=== PATIENT | female | born 1985 | race Caucasian/White ===

== ENCOUNTER 2016-05-05 10:48 | Emergency (ER) | payer OTHER ==
[~2016-05-05] VITALS: Ht 170.2 cm; Wt 71.4 kg
[~2016-05-05 10:48] MED LIST: ABILIFY 10MG TA10 MG PO; ABILIFY 15MG TA15 MG PO; ABILIFY2 MG; ABILIFY5 MG PO; AMOXICILLIN 50500 MG PO; ATARAX50 MG PO; ATIVAN 1MG T1 MG/TAB PO; ATIVAN2 MG PO; BENADRYL50 MG; BUSPAR5 MG PO; CYMBALTA 20MG20 MG; CYMBALTA 30MG30 MG PO; CYMBALTA 60MG60 MG PO; DESYREL 50MG50 MG PO; DILAUDID 4MG TAB4 MG PO; EFFEXOR 75M75 MG/TAB PO; EFFEXOR XR75 MG/CAP PO; FLEXERIL 1010 MG/TAB PO; KEPPRA 500MG500 MG PO; KEPPRA750 MG PO; LEVOXYL0.025 MG; LEVOXYL0.125 MG PO; MIDRIN 325 MG-11 CAP PO; NORCO 325 MG-51 TAB PO; PERCOCET 325 MG1 TA2 PO; PERIDEX (CHLOR480 ML MM; SYNTHROID0.1 MG/TAB PO; SYNTHROID0.125 MG/T PO; TOPAMAX 25MG25 M1; ZOFRAN 4MG T4 MG/TAB PO; ZOFRAN ODT4 MG PO
[2016-05-05 10:58] VITALS: TEMP 98.1
[2016-05-05] MEDS ORDERED: COMPAZINE 110 MG/TAB PO (12:44)
[2016-05-05 12:58] VITALS: BP 112/73; PULSE 57
[2016-05-05] MEDS ORDERED: REGLAN 10MG10 MG/TAB PO (17:10)
[2016-05-05] MEDS ORDERED: ULTRAM 50MG TAB50 MG PO (17:10)
== END 2016-05-05 13:01 | disposition home or self-care (01) ==
LOC: COL.ER 10:48
DX: G43.909 Migraine, unspecified, not intractable, without status migrainosus (principal)
CPT/HCPCS: J1200; J1885; J2550; J3010; J7030

== ENCOUNTER 2016-05-05 14:59 | Emergency (ER) | payer OTHER ==
[~2016-05-05] VITALS: Ht 170.2 cm; Wt 71.4 kg
[~2016-05-05 14:59] MED LIST changes: +COMPAZINE 110 MG/TAB PO
[2016-05-05 15:02] VITALS: TEMP 97.9
[2016-05-05] MEDS ORDERED: REGLAN 10MG10 MG/TAB PO (17:10)
[2016-05-05] MEDS ORDERED: ULTRAM 50MG TAB50 MG PO (17:10)
[2016-05-05 18:50] VITALS: BP 114/74; PULSE 55
== END 2016-05-05 18:50 | disposition home or self-care (01) ==
LOC: COL.ER 14:59
DX: R51 Headache (principal); F17.210 Nicotine dependence, cigarettes, uncomplicated; Z86.73 Personal history of transient ischemic attack (TIA), and cerebral infarction without residual deficits
CPT/HCPCS: J1100; J1200; J1885; J2405; J2550; J2765; J7030

== ENCOUNTER 2016-05-06 15:21 | Emergency (ER) | payer OTHER ==
[~2016-05-06] VITALS: Ht 170.2 cm; Wt 71.4 kg
[~2016-05-06 15:21] MED LIST changes: +REGLAN 10MG10 MG/TAB PO; +ULTRAM 50MG TAB50 MG PO
[2016-05-06 15:35] VITALS: BP 118/87; TEMP 98.6
[2016-05-06 16:33] LABS: BASO % 0.1 % (0.0-2.0); GRAN # 11.5 (1.4-6.5); GRAN % 76.9 % (42.2-75.2); LYMPH # 2.6 (1.2-3.4); LYMPH % 17.5 % (20.0-51.0); MEAN CELL VOLUME 86 fl (80.0-100.0); MEAN CORPUSCULAR HGB CONC 35 g/dl (33.0-37.0); MEAN PLATELET VOLUME 11.1 fl (7.4-10.4); MONO # 0.8 (0.1-0.6); MONO % 5.1 % (1.7-9.3); PLATELET COUNT 208 K/mm3 (130-400); RED BLOOD COUNT 3.94 M/mm3 (4.10-5.30); REDCELL DISTRIBUTION WIDTH-CV 14.2 % (11.5-14.5)
[2016-05-06 16:40] LABS: HEMATOCRIT 33.9 % (37.0-47.0); HEMOGLOBIN 11.8 g/dl (12.5-16.0); MEAN CORPUSCULAR HEMOGLOBIN 30 pg (27.0-31.0)
[2016-05-06 16:44] LABS: ADJUSTED CALCIUM 9.5 mg/dL (8.4-10.2); ALANINE AMINOTRANSFERASE 51 U/L (9-52); ALBUMIN 4.5 gm/dL (3.5-5.0); ALKALINE PHOSPHATASE 33 U/L (50-136); ANION GAP 13 mmol/L (7-16); BILIRUBIN,TOTAL 0.6 mg/dL (0.0-1.0); BLOOD UREA NITROGEN 14 mg/dL (7-17); CALCIUM 9.9 mg/dL (8.4-10.2); CARBON DIOXIDE 23 mmol/L (22-30); CHLORIDE 106 mmol/L (98-107); CREATININE, serum 0.67 mg/dL (0.52-1.25); GLUCOSE 112 mg/dL (74-106); POTASSIUM 3.7 mmol/L (3.4-5.0); SODIUM 141 mmol/L (137-145); TOTAL PROTEIN 8.2 gm/dL (6.4-8.2)
[2016-05-06 16:45] LABS: C-REACTIVE PROTEIN < 0.5 mg/dL (0.0-0.9)
[2016-05-06 17:07] LABS: ERYTHROCYTE SEDIMENTATION RATE 18 mm/hr (0-20)
[2016-05-06 17:45] VITALS: PULSE 80
== END 2016-05-06 17:43 | disposition home or self-care (01) ==
LOC: COL.ER 15:21
PROVIDERS: Physician Assistant
DX: G43.909 Migraine, unspecified, not intractable, without status migrainosus (principal); D72.829 Elevated white blood cell count, unspecified; I10 Essential (primary) hypertension; F17.210 Nicotine dependence, cigarettes, uncomplicated
CPT/HCPCS: J1200; J2060; J2765

== ENCOUNTER 2016-05-27 09:55 | Emergency (ER) | payer OTHER ==
[~2016-05-27] VITALS: Ht 170.2 cm; Wt 78.6 kg
[2016-05-27 09:56] VITALS: TEMP 100.2
[2016-05-27] MEDS ORDERED: REMERON 15M15 MG/TA1 PO (10:20)
[2016-05-27] MEDS ORDERED: INDERAL 20MG20 MG PO (10:21)
[2016-05-27 10:35] LABS: BASO % 0.6 % (0.0-2.0); EOS # 0.1 (0.0-0.7); EOS % 1.8 % (0-4.0); GRAN # 2.4 (1.4-6.5); GRAN % 48.3 % (42.2-75.2); LYMPH # 2.2 (1.2-3.4); LYMPH % 42.9 % (20.0-51.0); MEAN CELL VOLUME 88 fl (80.0-100.0); MEAN CORPUSCULAR HGB CONC 34 g/dl (33.0-37.0); MEAN PLATELET VOLUME 11.1 fl (7.4-10.4); MONO # 0.3 (0.1-0.6); MONO % 6.2 % (1.7-9.3); PLATELET COUNT 218 K/mm3 (130-400); RED BLOOD COUNT 3.74 M/mm3 (4.10-5.30); REDCELL DISTRIBUTION WIDTH-CV 14.3 % (11.5-14.5)
[2016-05-27 10:44] LABS: ADJUSTED CALCIUM 9.2 mg/dL (8.4-10.2); ALANINE AMINOTRANSFERASE 37 U/L (9-52); ALBUMIN 4.3 gm/dL (3.5-5.0); ALKALINE PHOSPHATASE 27 U/L (50-136); ANION GAP 10 mmol/L (7-16); BLOOD UREA NITROGEN 18 mg/dL (7-17); CALCIUM 9.4 mg/dL (8.4-10.2); CARBON DIOXIDE 25 mmol/L (22-30); CHLORIDE 106 mmol/L (98-107); CREATININE, serum 0.74 mg/dL (0.52-1.25); GLUCOSE 88 mg/dL (74-106); HEMATOCRIT 32.8 % (37.0-47.0); HEMOGLOBIN 11.1 g/dl (12.5-16.0); MEAN CORPUSCULAR HEMOGLOBIN 30 pg (27.0-31.0); POTASSIUM 4.1 mmol/L (3.4-5.0); SODIUM 141 mmol/L (137-145); TOTAL PROTEIN 7.9 gm/dL (6.4-8.2)
[2016-05-27 10:54] LABS: C-REACTIVE PROTEIN < 0.5 mg/dL (0.0-0.9)
[2016-05-27 11:11] LABS: ERYTHROCYTE SEDIMENTATION RATE 22 mm/hr (0-20)
[2016-05-27] MEDS ORDERED: NORCO 325 MG-51 TAB PO (12:46)
[2016-05-27 12:54] VITALS: BP 124/80; PULSE 51
== END 2016-05-27 12:52 | disposition home or self-care (01) ==
LOC: COL.ER 09:55
PROVIDERS: Emergency Medicine
DX: R51 Headache (principal); F17.210 Nicotine dependence, cigarettes, uncomplicated
CPT/HCPCS: J1170; J1885; J2405; J7030

== ENCOUNTER 2016-06-25 04:13 | Emergency (ER) | payer OTHER ==
[~2016-06-25] VITALS: Ht 170.2 cm; Wt 71.4 kg
[~2016-06-25 04:13] MED LIST changes: +INDERAL 20MG20 MG PO; +REMERON 15M15 MG/TA1 PO
[2016-06-25 04:15] VITALS: TEMP 99.2
[2016-06-25 05:18] VITALS: BP 112/71; PULSE 79
== END 2016-06-25 05:18 | disposition home or self-care (01) ==
LOC: COL.ER 04:13
DX: G43.909 Migraine, unspecified, not intractable, without status migrainosus (principal)
CPT/HCPCS: J1170; J1885; J2550

== ENCOUNTER 2016-07-12 11:22 | Emergency (ER) | payer OTHER ==
[~2016-07-12] VITALS: Ht 170.2 cm; Wt 71.4 kg
[2016-07-12 11:28] VITALS: TEMP 97.9
[2016-07-12 12:12] LABS: PH 6 (5-8); URINE APPEARANCE Clear; URINE BACTERIA None Seen /hpf; URINE BILIRUBIN Negative (NEGATIVE); URINE BLOOD Negative (NEGATIVE); URINE COLOR Yellow; URINE GLUCOSE Negative (NEGATIVE); URINE KETONE Trace (NEGATIVE)
[2016-07-12 14:37] VITALS: BP 132/74; PULSE 65
== END 2016-07-12 14:38 | disposition home or self-care (01) ==
LOC: COL.ER 11:22
PROVIDERS: Nurse Practitioner
DX: R51 Headache (principal); F17.210 Nicotine dependence, cigarettes, uncomplicated; I10 Essential (primary) hypertension
CPT/HCPCS: J1100; J1110; J1200; J1885; J2405; J2550; J2765; J7030

== ENCOUNTER 2016-07-14 14:54 | Emergency (ER) | payer OTHER ==
[~2016-07-14] VITALS: Ht 170.2 cm; Wt 71.4 kg
[2016-07-14 15:03] VITALS: BP 121/96; TEMP 98.3
[2016-07-14] MEDS ORDERED: INDERAL40 MG PO (15:05)
[2016-07-14 17:59] VITALS: PULSE 60
== END 2016-07-14 18:00 | disposition home or self-care (01) ==
LOC: COL.ER 14:54
DX: R51 Headache (principal); I10 Essential (primary) hypertension
CPT/HCPCS: J1170; J1200; J2550

== ENCOUNTER 2016-07-21 15:33 | Emergency (ER) | payer OTHER ==
[~2016-07-21] VITALS: Ht 170.2 cm; Wt 71.4 kg
[~2016-07-21 15:33] MED LIST changes: +INDERAL40 MG PO
[2016-07-21 15:36] VITALS: TEMP 98
[2016-07-21] MEDS ORDERED: INDERAL 10MG10 MG PO (15:39)
[2016-07-21 16:42] VITALS: BP 97/56; PULSE 56
[2016-07-21] MEDS ORDERED: FIORICET 325 MG1 TA1 PO (16:47)
[2016-07-21] MEDS ORDERED: PERCOCET 325 MG1 TA2 PO (16:47)
== END 2016-07-21 16:58 | disposition home or self-care (01) ==
LOC: COL.ER 15:33
DX: G43.909 Migraine, unspecified, not intractable, without status migrainosus (principal); F17.210 Nicotine dependence, cigarettes, uncomplicated
CPT/HCPCS: J1170

== ENCOUNTER 2016-07-27 03:48 | Emergency (ER) | payer OTHER ==
[~2016-07-27] VITALS: Ht 170.2 cm; Wt 71.4 kg
[~2016-07-27 03:48] MED LIST changes: +FIORICET 325 MG1 TA1 PO; +INDERAL 10MG10 MG PO
[2016-07-27 05:04] LABS: BASO % 0.4 % (0.0-2.0); EOS # 0.1 (0.0-0.7); EOS % 1.2 % (0-4.0); GRAN # 5.3 (1.4-6.5); GRAN % 58.1 % (42.2-75.2); HEMATOCRIT 32.6 % (37.0-47.0); HEMOGLOBIN 10.8 g/dl (12.5-16.0); LYMPH # 3.1 (1.2-3.4); LYMPH % 34.2 % (20.0-51.0); MEAN CELL VOLUME 86 fl (80.0-100.0); MEAN CORPUSCULAR HEMOGLOBIN 28 pg (27.0-31.0); MEAN CORPUSCULAR HGB CONC 33 g/dl (33.0-37.0); MEAN PLATELET VOLUME 11.5 fl (7.4-10.4); MONO # 0.5 (0.1-0.6); MONO % 5.9 % (1.7-9.3); PLATELET COUNT 193 K/mm3 (130-400); RED BLOOD COUNT 3.79 M/mm3 (4.10-5.30); REDCELL DISTRIBUTION WIDTH-CV 13.9 % (11.5-14.5); WHITE BLOOD COUNT 9.2 K/mm3 (4.8-10.8)
[2016-07-27] MEDS ORDERED: ZITHROMAX Z PA250 MG PO (05:09)
[2016-07-27 05:19] LABS: ADJUSTED CALCIUM 9.3 mg/dL (8.4-10.2); ALANINE AMINOTRANSFERASE 28 U/L (9-52); ALKALINE PHOSPHATASE 34 U/L (50-136); ANION GAP 11 mmol/L (7-16); BILIRUBIN,TOTAL 0.5 mg/dL (0.0-1.0); BLOOD UREA NITROGEN 17 mg/dL (7-17); CALCIUM 9.3 mg/dL (8.4-10.2); CARBON DIOXIDE 25 mmol/L (22-30); CHLORIDE 105 mmol/L (98-107); CREATININE, serum 0.68 mg/dL (0.52-1.25); GLUCOSE 87 mg/dL (74-106); POTASSIUM 3.6 mmol/L (3.4-5.0); SODIUM 141 mmol/L (137-145); TOTAL PROTEIN 7.5 gm/dL (6.4-8.2)
[2016-07-27 05:41] VITALS: BP 101/56; PULSE 51; TEMP 97.1
[2016-07-27 05:58] LABS: C-REACTIVE PROTEIN < 0.5 mg/dL (0.0-0.9)
== END 2016-07-27 06:50 | disposition home or self-care (01) ==
LOC: COL.ER 03:48
PROVIDERS: Family Medicine
DX: R51 Headache (principal); J20.9 Acute bronchitis, unspecified
CPT/HCPCS: J1170; J2550; J7030

== ENCOUNTER 2016-08-24 01:46 | Emergency (ER) | payer OTHER ==
[~2016-08-24] VITALS: Ht 170.2 cm; Wt 71.4 kg
[~2016-08-24 01:46] MED LIST changes: +ZITHROMAX Z PA250 MG PO
[2016-08-24 01:57] VITALS: BP 107/66; PULSE 77; TEMP 98.1
== END 2016-08-24 03:22 | disposition home or self-care (01) ==
LOC: COL.ER 01:46
DX: M54.6 Pain in thoracic spine (principal); G40.909 Epilepsy, unspecified, not intractable, without status epilepticus; F31.9 Bipolar disorder, unspecified
CPT/HCPCS: J1885; J2360

== ENCOUNTER 2016-09-04 10:39 | Emergency (ER) | payer OTHER ==
[~2016-09-04] VITALS: Ht 170.2 cm; Wt 71.4 kg
[2016-09-04 10:42] VITALS: BP 120/68; TEMP 98.1
[2016-09-04] MEDS ORDERED: FLEXERIL 1010 MG/TAB PO (12:07)
[2016-09-04 12:52] VITALS: PULSE 65
== END 2016-09-04 12:53 | disposition home or self-care (01) ==
LOC: COL.ER 10:39
DX: M54.6 Pain in thoracic spine (principal); Z87.891 Personal history of nicotine dependence; I10 Essential (primary) hypertension; R56.9 Unspecified convulsions; G43.909 Migraine, unspecified, not intractable, without status migrainosus; E89.0 Postprocedural hypothyroidism
CPT/HCPCS: J1885; J3360

== ENCOUNTER 2016-09-17 16:33 | Emergency (ER) | payer OTHER ==
[~2016-09-17] VITALS: Ht 170.2 cm; Wt 71.4 kg
[2016-09-17 16:36] VITALS: BP 124/91; TEMP 98.8
[2016-09-17 17:38] LABS: BASO % 0.7 % (0.0-2.0); EOS # 0.2 (0.0-0.7); EOS % 2.6 % (0-4.0); GRAN # 3.5 (1.4-6.5); GRAN % 57.6 % (42.2-75.2); LYMPH % 33.2 % (20.0-51.0); MEAN CELL VOLUME 83 fl (80.0-100.0); MEAN CORPUSCULAR HGB CONC 33 g/dl (33.0-37.0); MONO # 0.4 (0.1-0.6); MONO % 5.7 % (1.7-9.3); PLATELET COUNT 205 K/mm3 (130-400); RED BLOOD COUNT 3.85 M/mm3 (4.10-5.30); REDCELL DISTRIBUTION WIDTH-CV 15.5 % (11.5-14.5); WHITE BLOOD COUNT 6.1 K/mm3 (4.8-10.8)
[2016-09-17 17:40] LABS: HEMATOCRIT 32.1 % (37.0-47.0); HEMOGLOBIN 10.7 g/dl (12.5-16.0); MEAN CORPUSCULAR HEMOGLOBIN 28 pg (27.0-31.0)
[2016-09-17 18:00] LABS: ANION GAP 11 mmol/L (7-16); BLOOD UREA NITROGEN 14 mg/dL (7-17); CALCIUM 8.4 mg/dL (8.4-10.2); CARBON DIOXIDE 27 mmol/L (22-30); CHLORIDE 103 mmol/L (98-107); CREATININE, serum 0.68 mg/dL (0.52-1.25); GLUCOSE 80 mg/dL (74-106); SODIUM 141 mmol/L (137-145)
[2016-09-17 18:23] LABS: C-REACTIVE PROTEIN < 0.5 mg/dL (0.0-0.9); TROPONIN-I < 0.012 ng/mL (0.000-0.034)
[2016-09-17 19:41] VITALS: PULSE 70
== END 2016-09-17 19:43 | disposition home or self-care (01) ==
LOC: COL.ER 16:33
PROVIDERS: Physician Assistant
DX: R07.81 Pleurodynia (principal); R05 Cough; F17.210 Nicotine dependence, cigarettes, uncomplicated; R56.9 Unspecified convulsions
CPT/HCPCS: J1200; J1885; J7030; Q9967